=== PATIENT | female | born 1975 | race Hispanic/Latino ===

== ENCOUNTER 2022-12-07 11:10 | Observation (INO) | payer SELFPAY ==
[~2022-12-07] VITALS: Ht 162.6 cm; Wt 72.6 kg
[2022-12-07] MEDS ORDERED: SODIUM CHLORIDE 0.9% 1000ML 1,000 ML IV STA (11:38)
[2022-12-07] MEDS ORDERED: ONDANSETRON HCL INJ 2MG/ML 2ML 2 MG/ML VIAL IV STA (11:38)
[2022-12-07] MEDS ORDERED: MECLIZINE HCL 12.5 MG TAB PO ONE (11:45)
[2022-12-07 11:53] LABS: BASOPHILS % 0.6 % (0.0-1.0); EOSINOPHILS # (AUTO) 0.1 (0.0-0.4); EOSINOPHILS % 2.1 % (0.0-6.0); HEMATOCRIT 26.5 % (34.2-44.1); LYMPHOCYTES # (AUTO) 1.6 (1.0-3.2); LYMPHOCYTES % 24.2 % (18.0-39.1); MEAN CORPUSCULAR VOLUME 65.4 fL (81-99); MONOCYTES # (AUTO) 0.4 (0.2-0.8); MONOCYTES % 6.1 % (4.4-11.3); NEUTROPHILS # (AUTO) 4.4 (2.1-6.9); NEUTROPHILS % 66.3 % (38.7-80.0); PLATELET COUNT 478 x10e3/uL (140-360); RED BLOOD COUNT 4.05 x10e6/uL (3.6-5.1); RED CELL DISTRIBUTION WIDTH 18.3 % (11.7-14.4)
[2022-12-07 12:02] LABS: HEMOGLOBIN 6.9 g/dL (12.0-16.0)
[2022-12-07 12:11] LABS: ALANINE AMINOTRANSFERASE 12 IU/L (0-55); ALBUMIN 3.6 g/dL (3.5-5.0); ALBUMIN/GLOBULIN RATIO 1.1 (0.8-2.0); ALKALINE PHOSPHATASE 59 IU/L (40-150); ANION GAP 13.8 mmol/L (8-16); BLOOD UREA NITROGEN 10 mg/dL (7-26); BUN/CREATININE RATIO 12 (6-25); CARBON DIOXIDE 25 mmol/L (22-29); CHLORIDE 105 mmol/L (98-107); CREATINE KINASE 37 IU/L (29-168); CREATININE, SERUM 0.82 mg/dL (0.57-1.11); GLUCOSE 97 mg/dL (74-118); POTASSIUM 3.8 mmol/L (3.5-5.1); SODIUM 140 mmol/L (136-145)
[2022-12-07] MEDS ORDERED: SODIUM CHLORIDE 0.9% 250ML 250 ML IV ONE (12:30)
[2022-12-07 12:34] LABS: MICROCYTOSIS MODERATE; PLATELET ESTIMATE ADEQUATE; PLATELET MORPHOLOGY COMMENT NORMAL; RBC MORPHOLOGY COMMENT NORMAL
[2022-12-07 12:35] LABS: HYPOCHROMASIA SLIGHT
[2022-12-07 12:42] LABS: CLARITY,URINE TURBID (CLEAR); COLOR,URINE YELLOW (YELLOW); LEUKOCYTE ESTERASE ,URINE NEGATIVE (NEGATIVE); NITRITE,URINE NEGATIVE (NEGATIVE); PROTEIN,URINE DIPSTICK NEGATIVE (NEGATIVE)
[2022-12-07 12:43] LABS: KETONES,URINE NEGATIVE (NEGATIVE); URINE UROBILINOGEN 0.2 mg/dL (0.2 - 1)
[2022-12-07 12:57] LABS: AMORPHOUS SEDIMENT,URINE MANY (FEW); BACTERIA,URINE MANY /HPF; EPITHELIAL CELLS,URINE FEW /LPF; RBC,URINE 0-5 /HPF (0-5); WBC,URINE (MAN) 0-5 /HPF (0-5)
[2022-12-07] MEDS ORDERED: ONDANSETRON HCL INJ 2MG/ML 2ML 2 MG/ML VIAL IV PRN ×2 (13:30→18:30)
[2022-12-07] MEDS: SODIUM CHLORIDE 0.9% 1000ML 1,000 ML IV SCH ×2 (13:46→21:28)
[2022-12-07 14:14] LABS: CREATINE KINASE MB 0.7 ng/mL (0-5.0)
[2022-12-07 15:10] VITALS: BP 132/86
[2022-12-07 15:11] VITALS: BP 132/86
[2022-12-07 15:42] VITALS: BP 132/86
[2022-12-07 15:43] VITALS: BP 132/86
[2022-12-07 16:00] VITALS: BP 132/86
[2022-12-07] MEDS ORDERED: ACETAMINOPHEN 325 MG TAB PO PRN (18:30)
[2022-12-07 19:20] LABS: FERRITIN 2.82 ng/mL (4.63-204.00)
[2022-12-07 20:00] VITALS: BP 120/83
[2022-12-08] VITALS (9 sets, daily range): BP systolic 102–141; BP diastolic 65–85
[2022-12-08 05:26] LABS: BASOPHILS # (AUTO) 0.1 (0.0-0.1); BASOPHILS % 0.9 % (0.0-1.0); EOSINOPHILS # (AUTO) 0.2 (0.0-0.4); EOSINOPHILS % 2.7 % (0.0-6.0); HEMATOCRIT 27.6 % (34.2-44.1); HEMOGLOBIN 7.7 g/dL (12.0-16.0); LYMPHOCYTES # (AUTO) 1.8 (1.0-3.2); LYMPHOCYTES % 26.2 % (18.0-39.1); MEAN CORPUSCULAR HEMOGLOBIN 18.7 pg (28-32); MEAN CORPUSCULAR HGB CONC 27.9 g/dL (31-35); MEAN CORPUSCULAR VOLUME 67.2 fL (81-99); MONOCYTES # (AUTO) 0.5 (0.2-0.8); MONOCYTES % 7.9 % (4.4-11.3); NEUTROPHILS # (AUTO) 4.1 (2.1-6.9); NEUTROPHILS % 61.7 % (38.7-80.0); PLATELET COUNT 443 x10e3/uL (140-360); RED BLOOD COUNT 4.11 x10e6/uL (3.6-5.1); RED CELL DISTRIBUTION WIDTH 19.6 % (11.7-14.4)
[2022-12-08 05:43] LABS: CALCIUM 8.5 mg/dL (8.4-10.2); CREATININE, SERUM 0.58 mg/dL (0.57-1.11)
[2022-12-08 05:54] LABS: CREATINE KINASE MB 0.4 ng/mL (0-5.0)
[2022-12-08] MEDS: SODIUM CHLORIDE 0.9% 1000ML 1,000 ML IV SCH (13:30)
[2022-12-08 14:51] LABS: CREATINE KINASE MB 0.6 ng/mL (0-5.0)
[2022-12-08] MEDS: FERROUS SULFATE 325 MG TAB PO SCH (17:26)
[2022-12-09] MEDS: SODIUM CHLORIDE 0.9% 1000ML 1,000 ML IV SCH ×3 (00:01→09:22)
[2022-12-09 00:39] VITALS: BP 114/75
[2022-12-09 05:25] VITALS: BP_SYST 115; BP_SYST 125; BP_DIAS 68; BP_DIAS 84
[2022-12-09 05:26] VITALS: BP 111/74
[2022-12-09 07:31] VITALS: BP 138/79
[2022-12-09 08:46] VITALS: BP 138/79
[2022-12-09] MEDS: FERROUS SULFATE 325 MG TAB PO SCH (09:22)
[2022-12-09] MEDS ORDERED: ASCORBIC ACID 500 MG TAB PO SCH (10:45)
[2022-12-09] MEDS ORDERED: ACETAMINOPHEN325 M1 PO (10:47)
[2022-12-09] MEDS ORDERED: Ferrous Sulfate PO (10:47)
[2022-12-09] MEDS ORDERED: ONDANSETRON ODT4 MG PO (10:47)
[2022-12-09] MEDS ORDERED: ASCORBIC ACID500 MG PO (10:47)
[2022-12-09] MEDS ORDERED: SODIUM FERRIC GLUCONATE COMPLX 125 MG in SODIUM CHLORIDE 0.9% 100 ML IV ONE (11:00)
[2022-12-09 11:36] VITALS: BP 126/85
[2022-12-09] MEDS ORDERED: FERROUS SULFATE 325 MG TAB PO SCH (17:00)
== END 2022-12-09 13:55 | disposition home or self-care (01) ==
LOC: ER 11:20 → UNDOADMOB 13:28 → ERHOLD 13:28 → MED/SURG3 14:50
PROVIDERS: ADMIT Internal Medicine; ATTEND Internal Medicine
DX: R42 Dizziness and giddiness (principal); D50.9 Iron deficiency anemia, unspecified; R53.1 Weakness; Z20.822 Contact with and (suspected) exposure to COVID-19; Z91.81 History of falling
CPT/HCPCS: 0223U; 36415 ×2; 70450; 71045; 72125; 80048; 80053; 81001; 82550 ×2; 82553 ×2; 82607; 82728; 83540; 84466; 84484 ×2; 85025 ×2; 86850; 86900; 86920; 87400; 93005; 94799 ×2; 99284; G0378 ×3; J2405; J2916; J7030 ×2; J7050; J8597; P9016

== ENCOUNTER 2023-01-14 18:08 | Emergency (ER) | payer SELFPAY ==
[~2023-01-14] VITALS: Ht 315 cm; Wt 72.6 kg
[~2023-01-14 18:08] MED LIST: ACETAMINOPHEN325 M1 PO; ASCORBIC ACID500 MG PO; Ferrous Sulfate PO; ONDANSETRON ODT4 MG PO
[2023-01-14 19:22] LABS: BASOPHILS # (AUTO) 0.1 (0.0-0.1); BASOPHILS % 0.7 % (0.0-1.0); EOSINOPHILS # (AUTO) 0.1 (0.0-0.4); EOSINOPHILS % 1.6 % (0.0-6.0); HEMOGLOBIN 10.5 g/dL (12.0-16.0); LYMPHOCYTES # (AUTO) 1.1 (1.0-3.2); LYMPHOCYTES % 12.6 % (18.0-39.1); MEAN CORPUSCULAR HEMOGLOBIN 23.1 pg (28-32); MEAN CORPUSCULAR HGB CONC 29.2 g/dL (31-35); MEAN CORPUSCULAR VOLUME 79.1 fL (81-99); MONOCYTES # (AUTO) 0.5 (0.2-0.8); MONOCYTES % 5.9 % (4.4-11.3); NEUTROPHILS % 78.7 % (38.7-80.0); PLATELET COUNT 418 x10e3/uL (140-360); RED BLOOD COUNT 4.55 x10e6/uL (3.6-5.1)
[2023-01-14 19:43] LABS: ALBUMIN 3.8 g/dL (3.5-5.0); ANION GAP 13.3 mmol/L (8-16); CALCIUM 9.6 mg/dL (8.4-10.2); CREATININE, SERUM 0.94 mg/dL (0.57-1.11); POTASSIUM 4.3 mmol/L (3.5-5.1)
[2023-01-14 20:03] LABS: CREATINE KINASE MB 0.7 ng/mL (0-5.0)
[2023-01-14 20:28] LABS: AMPHETAMINES SCREEN,URINE NEGATIVE (NEGATIVE); BENZODIAZEPINES SCREEN,URINE NEGATIVE (NEGATIVE); PHENCYCLIDINE SCREEN,URINE NEGATIVE (NEGATIVE)
[2023-01-14 20:29] LABS: CLARITY,URINE SL CLOUDY (CLEAR); COLOR,URINE PINK (YELLOW); KETONES,URINE NEGATIVE (NEGATIVE); LEUKOCYTE ESTERASE ,URINE TRACE (NEGATIVE); NITRITE,URINE NEGATIVE (NEGATIVE); PROTEIN,URINE DIPSTICK NEGATIVE (NEGATIVE); URINE UROBILINOGEN 0.2 mg/dL (0.2 - 1)
[2023-01-14 20:37] LABS: BACTERIA,URINE RARE /HPF; EPITHELIAL CELLS,URINE MANY /LPF; RBC,URINE >50 /HPF (0-5)
[2023-01-14 20:38] LABS: AMORPHOUS SEDIMENT,URINE FEW (FEW)
[2023-01-14] MEDS ORDERED: MACROBID 100 M100 MG PO (20:53)
[2023-01-14 21:07] VITALS: BP 125/88
== END 2023-01-14 21:10 | disposition home or self-care (01) ==
LOC: ER 18:16
DX: R42 Dizziness and giddiness (principal); N39.0 Urinary tract infection, site not specified; R53.1 Weakness
CPT/HCPCS: 36415; 70450; 71045; 80053; 80307; 81001; 82550; 82553; 84484; 84702; 85025; 86850; 86870; 86880; 86900; 86905; 93005; 99001; 99284